=== PATIENT | female | born 2000 | race Two or more races ===

== ENCOUNTER 2019-06-28 20:09 | Emergency (ER) | payer MEDICAID ==
[~2019-06-28] VITALS: Ht 152.4 cm; Wt 53.0 kg
[2019-06-28 20:17] VITALS: BP 122/78
--- NOTE | 2019-06-28 20:24 | NUR ---
PT BIB PD FOR SI. REPORT STATED PT HAS BEEN DEPRESSED, MOTHER TOLD PT TO NOT FORGET TO FEED 4 MONTH OLD BABY, PT STS SHE DIDNT WANT TO FEED HER. THAT SHE DIDNT WANT THE BABY IN THE FIRST PLACE. "I JUST WANT TO ." PT HAS BEEN OFF MEDS X2 YEARS. PT REPORTING THAT FOR MONTHS SHE HAS BEEN TRYING TO GET HELP BUT DISCURRAGED BY FAMILY. PAST ATTEMPTS (HANGING, CUTTING). WHEN ASKED IF SHE HAD A PLAN THIS TIME PT STS, "I DO BUT I DONT WANT TO TELL ANYONE BECAUSE THEN SOMEONE WILL TRY TO STOP ME." PT WOULD NOT CONFIDE PLAN TO THIS RN AT THIS TIME. UNDRESSED COMPLETELY EXCEPT FOR UNDERWARE D/T PT BEING ON PERIOD. NON SKID SOCKS AND BLANKET PROVIDED FOR COMFORT. 2 BAGS OF BELONGINGS INCLUDING CLOTHING, BOOTS, PHONE, NECKLACE AND ID PLACED INTO LOCKER. PT CURRENTLY CALM AND COOPERATIVE WITH STAFF. WILL CONTINUE TO MONITOR
[2019-06-28 21:02] LABS: BASOPHILS # (AUTO) 0.06 x10^3/uL (0-0.3); BASOPHILS % (AUTO) 1 % (0-1); EOSINOPHILS # (AUTO) 0.79 x10^3/uL (0-0.8); EOSINOPHILS % (AUTO) 8 % (1-7); LYMPHOCYTES # (AUTO) 3.27 x10^3/uL (1-6.1); LYMPHOCYTES % (AUTO) 33 % (22-44); MD NO; MEAN CORPUSCULAR HEMOGLOBIN 28.8 pg (27.0-34.8); MEAN CORPUSCULAR HGB CONC 33.3 g/dL (32.4-35.8); MEAN CORPUSCULAR VOLUME 86.6 fL (80-100); MEAN PLATELET VOLUME 8.8 fL (7.4-10.4); MONOCYTES # (AUTO) 0.61 x10^3/uL (0-1.4); MONOCYTES % (AUTO) 6 % (2-9); NEUTROPHILS # (AUTO) 5.32 x10^3/uL (1.8-8.0); NEUTROPHILS % (AUTO) 53 % (42-75); PLATELET COUNT 426 x10^3/uL (130-400); RED BLOOD COUNT 4.44 x10^6/uL (3.82-5.3); RED CELL DISTRIBUTION WIDTH 16.6 % (9.6-15.2)
[2019-06-28 21:15] LABS: ALBUMIN 3.7 g/dL (3.4-5.0); ANION GAP 5 mmol/L (5-15); CALCIUM 9.2 mg/dL (8.5-10.1); CHLORIDE 108 mmol/L (98-107); CREATININE 0.71 mg/dL (0.55-1.02); SALICYLATE LEVEL < 1.7 mg/dL (2.8-20.0)
[2019-06-28 21:23] LABS: AMPHETAMINE SCREEN, URINE Negative (Negative); BARBITURATE SCREEN, URINE Negative (Negative); BENZODIAZEPINE SCREEN, URINE Negative (Negative); CANNABINOID SCREEN, URINE Negative (Negative); COCAINE SCREEN, URINE Negative (Negative); METHADONE SCREEN, URINE Negative (Negative); OPIATE SCREEN, URINE Negative (Negative)
--- NOTE | 2019-06-28 21:32 | NUR ---
PA TO BEDSIDE, STS NO NEED FOR TELEPSYCH PT WILL STAY ON LEGAL HOLD. PLAN TO FIND PLACEMENT WHEN PT MEDICALLY CLEARED. ALL RESULTS BACK AT THIS TIME. PT RESTING IN BED WATCHING TV. CALM AND COOPERATIVE WITH STAFF AT THIS TIME. WILL CONTINUE TO MONITOR PT.
--- NOTE | 2019-06-28 22:27 | NUR ---
PT RESTING IN BED, NADN, NO COMPLAINTS AT THIS TIME. PT GIVEN JUICE AND CRACKERS PER REQUEST. SITTER IN DE [place] FOR CONTINUOUS MONITORING.
--- NOTE | 2019-06-28 22:40 | NUR ---
REPORT RECEIVED FROM KATHRIN PINO RN. ASSUMED CARE OF PT. PT MOVED TO ROOM 3. ROOM SECURE. SITTER OUTSIDE DOOR
--- NOTE | 2019-06-28 23:21 | NUR ---
PT RESTING ON GURNEY, CONVERSING WITH SITTER, LAUGHING AND MAKING JOKES. WHEN ASKED HOW SHE IS FEELING SHE STATES "I'M SMILING ON THE OUTSIDE BUT I FEEL SAD AND LONELY ON THE INSIDE". PT REPORTS SHE DOES NOT HAVE ANY THOUGHTS OF HARMING HERSELF AT THIS TIME. SITTER REMAINS OUTSIDE DOOR MONITORING PT. ROOM SECURE. WILL CONTINUE TO MONITOR.
--- NOTE | 2019-06-28 23:52 | NUR ---
[employer]BI paged as patient has [employer] HPN insurance. All information provided.
--- NOTE | 2019-06-29 00:44 | NUR ---
PT PROVIDED WITH BREAST PUMP
--- NOTE | 2019-06-29 01:03 | NUR ---
ATTEMPTED TO CALL PT MOTHER TO SEE IF SHE WILL BE PICKING UP THE PATIENT'S BREASTMILK FOR HER BABY. NO ANSWER. THE PT THINKS SHE IS LIKELY AWAKE AT THIS TIME FEEDING THE BABY. THE MILK IS LABELED AND WILL BE STORED ON ICE
--- NOTE | 2019-06-29 02:20 | NUR ---
PT PROVIDED WITH A MEAL UPON REQUEST. FLUIDS ALSO PROVIDED. PT REMAINS CALM AND COOPERATIVE AT THIS TIME. ROOM REMAINS SECURE. SITTER OUTSIDE DOOR MONITORING PT
[2019-06-29] MEDS ORDERED: DIPHENHYDRAMINE 50 MG CAPSULE ONE (03:11)
--- NOTE | 2019-06-29 03:15 | NUR ---
PT MEDICATED PER EMAR, 5 RIGHTS ADDRESSED.
[2019-06-29] MEDS ORDERED: DIPHENHYDRAMINE 50 MG CAPSULE PO PRN (03:30)
--- NOTE | 2019-06-29 04:23 | NUR ---
PT SLEEPING, RESPIRATIONS EVEN AND UNLABORED. SITTER OUTSIDE DOOR, ROOM REMAINS SECURE. AWAITING PSYCH EVALUATION AT THIS TIME
--- NOTE | 2019-06-29 05:30 | NUR ---
PT CONTINUES TO SLEEP. RESPIRATIONS EVEN AND UNLABORED. ROOM REMAINS SECURE. SITTER OUTSIDE DOOR
--- NOTE | 2019-06-29 09:45 | NUR ---
Patient has been awake the last hour. She is quiet, cooperative with VS and assessment. Patient denies SI/HI at this time, though she does admit to SA by hanging in the past and states she spent tmie in inpatient treatment subsequently. Her affect is blunted, good eye contact, guarded. Reports depression 6/10, but no anxiety. Denies SI/HI at this tme. Denies AH/VH. Denies pain. She is four months post- and is pumping milk for baby. Reports she slept fair, endorses that she is tired, eating and drinking fluids well,Continue to monitor for safety, all unsafe items removed from room, garage door down.
[2019-06-29] MEDS ORDERED: PREN1TAB60 PO (10:03)
[2019-06-29] MEDS ORDERED: BUPR75TA6 PO (12:20)
[2019-06-29] MEDS ORDERED: RISP0.5T3 PO (12:20)
[2019-06-29] MEDS ORDERED: ARIP10TA33 PO (12:20)
[2019-06-29] MEDS ORDERED: OXCA600T10 PO (12:20)
== END 2019-06-29 23:56 | disposition other institution (70) ==
LOC: ED 22:32
DX: F33.9 Major depressive disorder, recurrent, unspecified (principal); R45.851 Suicidal ideations
CPT/HCPCS: 36415; 80048; 80307; 82040; 84703; 85025; 99284

== ENCOUNTER 2019-06-29 10:28 | Inpatient (IN) | payer MEDICAID ==
[~2019-06-29] VITALS: Ht 152.4 cm; Wt 43.3 kg
[~2019-06-29 10:28] MED LIST: PREN1TAB60 PO
[2019-06-29 11:05] VITALS: BP 97/54
[2019-06-29] MEDS ORDERED: FLU VACC QS2019-20 36MOS UP/PF 0.5 ML IM-VACC ONE (11:30)
[2019-06-29] MEDS ORDERED: DOCUSATE 100 MG CAPSULE PO PRN (11:30)
[2019-06-29] MEDS ORDERED: POLYETHYLENE GLYCOL 17 GM PACKET PO PRN (11:30)
[2019-06-29] MEDS ORDERED: PLEASE ENTER HEIGHT AND WEIGHT MC SCH (11:30)
[2019-06-29] MEDS ORDERED: BISACODYL 10 MG SUPP PR PRN (11:30)
[2019-06-29 12:14] LABS: CULTURE INDICATED? YES; MICROSCOPIC INDICATED
[2019-06-29] MEDS ORDERED: OXCA600T10 PO (12:20)
[2019-06-29] MEDS ORDERED: BUPR75TA6 PO (12:20)
[2019-06-29] MEDS ORDERED: ARIP10TA33 PO (12:20)
[2019-06-29] MEDS ORDERED: RISP0.5T3 PO (12:20)
[2019-06-29 19:15] VITALS: BP 98/63
[2019-06-29] MEDS ORDERED: TRAZODONE 50MG TABLET ONE (23:14)
[2019-06-29] MEDS: TRAZODONE 50MG TABLET PO PRN (23:17)
[2019-06-30 07:37] VITALS: BP 99/62
[2019-06-30] MEDS: FLUOXETINE 10 MG CAP PO SCH (09:04)
[2019-06-30] MEDS: MULTIVITAMIN 1 TABLET PO SCH (09:04)
[2019-06-30] MEDS: ACETAMINOPHEN 325 MG TABLET PO PRN (11:00)
[2019-06-30 19:28] VITALS: BP 97/61
[2019-07-01 07:29] VITALS: BP 103/66
[2019-07-01] MEDS: FLUOXETINE 10 MG CAP PO SCH (08:21)
[2019-07-01] MEDS: MULTIVITAMIN 1 TABLET PO SCH (08:21)
[2019-07-01 11:09] LABS: CHOL/HDL RATIO 3.4; LDL/HDL RATIO 1.8 (0.5-3.0)
[2019-07-01 19:39] VITALS: BP 107/70
[2019-07-02 07:18] VITALS: BP 106/65
[2019-07-02] MEDS: MULTIVITAMIN 1 TABLET PO SCH (08:53)
[2019-07-02] MEDS: FLUOXETINE 10 MG CAP PO SCH (08:53)
[2019-07-02] MEDS: ACETAMINOPHEN 325 MG TABLET PO PRN (09:07)
[2019-07-02] MEDS: ONDANSETRON ODT 4 MG PO PRN (09:07)
[2019-07-02 19:15] VITALS: BP 100/65
[2019-07-03 07:16] VITALS: BP 101/58
[2019-07-03] MEDS: ONDANSETRON ODT 4 MG PO PRN (08:59)
[2019-07-03] MEDS: FLUOXETINE HCL 20 MG CAPSULE PO SCH (08:59)
[2019-07-03] MEDS: MULTIVITAMIN 1 TABLET PO SCH (09:00)
[2019-07-03 20:07] VITALS: BP 105/63
[2019-07-03] MEDS: TRAZODONE 50MG TABLET PO PRN (20:59)
[2019-07-04 07:42] VITALS: BP 101/63
[2019-07-04] MEDS: FLUOXETINE HCL 20 MG CAPSULE PO SCH (09:12)
[2019-07-04] MEDS: MULTIVITAMIN 1 TABLET PO SCH (09:12)
[2019-07-04] MEDS ORDERED: TRAZ50TA66 PO (13:08)
[2019-07-04] MEDS ORDERED: MULT1TAB60 PO (13:08)
[2019-07-04] MEDS ORDERED: FLUO20CA8 PO (13:08)
== END 2019-07-04 15:30 | disposition home or self-care (01) | DRG 751 ==
LOC: 3E 10:52
PROVIDERS: ADMIT Psychiatry & Neurology Psychosomatic Medicine; ATTEND Internal Medicine
DX: F33.2 Major depressive disorder, recurrent severe without psychotic features (principal); R45.851 Suicidal ideations; J45.909 Unspecified asthma, uncomplicated; Z79.899 Other long term (current) drug therapy; Z91.011 Allergy to milk products; Z91.018 Allergy to other foods; Z81.8 Family history of other mental and behavioral disorders; Z82.49 Family history of ischemic heart disease and other diseases of the circulatory system
CPT/HCPCS: 36415; 80061; 81001; 82607; 84439; 84443; 84702; 87086; 90686; 93005; Q0162

== ENCOUNTER 2019-09-29 17:51 | Emergency (ER) | payer MEDICAID ==
[~2019-09-29] VITALS: Ht 152.4 cm; Wt 45.2 kg
[~2019-09-29 17:51] MED LIST changes: +ARIP10TA33 PO; +BUPR75TA6 PO; +FLUO20CA23 PO; +MULT1TAB60 PO; +OXCA600T10 PO; +RISP0.5T3 PO; +TRAZ50TA66 PO
[2019-09-29 19:47] VITALS: BP 122/72
== END 2019-09-29 19:52 ==
LOC: ED 18:58
DX: S46.911A Strain of unspecified muscle, fascia and tendon at shoulder and upper arm level, right arm, initial encounter (principal); J45.20 Mild intermittent asthma, uncomplicated; F17.200 Nicotine dependence, unspecified, uncomplicated; X58.XXXA Exposure to other specified factors, initial encounter; Y93.89 Activity, other specified; Y92.89 Other specified places as the place of occurrence of the external cause; Y99.8 Other external cause status
CPT/HCPCS: 71045; 99283

== ENCOUNTER 2019-09-30 00:57 | Emergency (ER) | payer MEDICAID ==
[~2019-09-30] VITALS: Ht 152.4 cm; Wt 53.0 kg
[2019-09-30 01:01] VITALS: BP 120/75
[2019-09-30] MEDS ORDERED: DIPHENHYDRAMINE 25 MG CAPSULE ONE (01:14)
[2019-09-30] MEDS ORDERED: DIPHENHYDRAMINE 25 MG CAPSULE PO ONE (01:30)
== END 2019-09-30 01:57 ==
LOC: ED 01:25
DX: R07.0 Pain in throat (principal); T79.0XXA Air embolism (traumatic), initial encounter; T39.315A Adverse effect of propionic acid derivatives, initial encounter; J45.909 Unspecified asthma, uncomplicated; X58.XXXA Exposure to other specified factors, initial encounter; Y93.89 Activity, other specified; Y92.9 Unspecified place or not applicable; Y99.9 Unspecified external cause status
CPT/HCPCS: 99283; J7512; Q0163

== ENCOUNTER 2019-10-29 21:19 | Emergency (ER) | payer MEDICAID ==
[~2019-10-29] VITALS: Ht 152.4 cm; Wt 46.0 kg
[2019-10-29] MEDS ORDERED: METR500T PO (21:34)
--- NOTE | 2019-10-29 21:36 | NUR ---
PT WITHIN VIEW OF NURSES STATION FOR SAFETY, AWAIT ROOM READINESS AND PT TO GO TO SECURED ROOM, SITTER HERE TO ASSIST WITH SAFETY OF THIS PT.
--- NOTE | 2019-10-29 21:49 | NUR ---
ASSESSMENT MADE. PA AT BEDSIDE.
--- NOTE | 2019-10-29 21:55 | NUR ---
PATIENT'S BELONGING 1 PLASTIC BAG AND PLACED IN SECURED LOCKER. URINE SENT TO LAB.
[2019-10-29 22:16] LABS: AMPHETAMINE SCREEN, URINE Negative (Negative); BARBITURATE SCREEN, URINE Negative (Negative); BENZODIAZEPINE SCREEN, URINE Negative (Negative); CANNABINOID SCREEN, URINE Negative (Negative); COCAINE SCREEN, URINE Negative (Negative); METHADONE SCREEN, URINE Negative (Negative); OPIATE SCREEN, URINE Negative (Negative)
--- NOTE | 2019-10-29 22:17 | NUR ---
CONVEYOR WEIGHER OPERATOR AT BEDSIDE FOR BLOOD DRAW.
[2019-10-29 22:38] LABS: BASOPHILS # (AUTO) 0.06 x10^3/uL (0-0.3); BASOPHILS % (AUTO) 1 % (0-1); EOSINOPHILS # (AUTO) 1.08 x10^3/uL (0-0.8); EOSINOPHILS % (AUTO) 12 % (1-7); LYMPHOCYTES # (AUTO) 3.84 x10^3/uL (1-6.1); LYMPHOCYTES % (AUTO) 42 % (22-44); MD NO; MEAN CORPUSCULAR HEMOGLOBIN 25.1 pg (27.0-34.8); MEAN CORPUSCULAR VOLUME 78.4 fL (80-100); MEAN PLATELET VOLUME 8.6 fL (7.4-10.4); MONOCYTES # (AUTO) 0.77 x10^3/uL (0-1.4); MONOCYTES % (AUTO) 8 % (2-9); NEUTROPHILS # (AUTO) 3.44 x10^3/uL (1.8-8.0); NEUTROPHILS % (AUTO) 37 % (42-75); PLATELET COUNT 460 x10^3/uL (130-400); RED BLOOD COUNT 4.43 x10^6/uL (3.82-5.3); RED CELL DISTRIBUTION WIDTH 15.9 % (9.6-15.2)
[2019-10-29 22:42] LABS: ALBUMIN 3.4 g/dL (3.4-5.0); ANION GAP 6 mmol/L (5-15); CALCIUM 8.6 mg/dL (8.5-10.1); CHLORIDE 108 mmol/L (98-107); CREATININE 0.77 mg/dL (0.55-1.02)
[2019-10-29 22:43] LABS: SALICYLATE LEVEL < 1.7 mg/dL (2.8-20.0)
--- NOTE | 2019-10-29 22:52 | NUR ---
Tele psych consult initiated.
[2019-10-29 23:02] LABS: CULTURE INDICATED? YES; MICROSCOPIC INDICATED
--- NOTE | 2019-10-29 23:40 | NUR ---
report was given to Psychiatry MD. tele robot at bedside.
--- NOTE | 2019-10-29 23:46 | NUR ---
Psychiatrist evaluating patient at this time.
--- NOTE | 2019-10-30 00:48 | NUR ---
re-evaluation done. patient discharged with instruction. verbalized understanding. cab voucher provided.
[2019-10-30 00:49] VITALS: BP 108/76
== END 2019-10-30 00:51 | disposition home or self-care (01) ==
LOC: ED 21:23
DX: R45.851 Suicidal ideations (principal); F41.9 Anxiety disorder, unspecified; J45.909 Unspecified asthma, uncomplicated; R52 Pain, unspecified
CPT/HCPCS: 36415; 80048; 80307; 81001; 82040; 84703; 85025; 87086; 99283

== ENCOUNTER 2019-11-03 19:20 | Emergency (ER) | payer MEDICAID ==
[~2019-11-03] VITALS: Ht 165.1 cm; Wt 58.0 kg
[~2019-11-03 19:20] MED LIST changes: +METR500T PO
[2019-11-03 19:30] VITALS: BP 126/70
--- NOTE | 2019-11-03 20:10 | NUR ---
PER PT [facility] HAS ALREADY BEEN TO SEE HER AND SHE HAS MADE A REPORT OF THE OCCURANCE.
[2019-11-03] MEDS ORDERED: FLUORESCEIN OPHTHALMIC 1 MG STRIP ONE (21:19)
[2019-11-03] MEDS ORDERED: PROPARACAINE OPHTH 0.5%, 15ML ONE (21:19)
--- NOTE | 2019-11-03 21:24 | NUR ---
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
[2019-11-03] MEDS ORDERED: PROPARACAINE OPHTH 0.5%, 15ML RIGHTEYE ONE (21:30)
[2019-11-03] MEDS ORDERED: FLUORESCEIN OPHTHALMIC 1 MG STRIP RIGHTEYE ONE (21:30)
--- NOTE | 2019-11-03 23:25 | NUR ---
PA AT BEDSIDE FOR EYE EXAM AT THIS TIME
--- NOTE | 2019-11-03 23:45 | NUR ---
PT EYE IRRIGATED, PT TOLERATED WELL STS EYE FEELS BETTER NOW
== END 2019-11-04 00:13 | disposition home or self-care (01) ==
LOC: ED 23:01
DX: S05.01XA Injury of conjunctiva and corneal abrasion without foreign body, right eye, initial encounter (principal); S20.212A Contusion of left front wall of thorax, initial encounter; Y04.0XXA Assault by unarmed brawl or fight, initial encounter; Y93.89 Activity, other specified; Y92.009 Unspecified place in unspecified non-institutional (private) residence as the place of occurrence of the external cause; Y99.8 Other external cause status
CPT/HCPCS: 70486; 99284

== ENCOUNTER 2019-11-06 10:51 | Emergency (ER) | payer MEDICAID ==
[~2019-11-06] VITALS: Ht 152.4 cm; Wt 46.0 kg
[2019-11-06 10:55] VITALS: BP 107/59
[2019-11-06] MEDS ORDERED: ONDANSETRON ODT 4 MG ONE (11:22)
[2019-11-06] MEDS ORDERED: ONDANSETRON ODT 4 MG PO ONE (11:30)
[2019-11-06 11:46] LABS: HCG UR SG 1.024 (1.003-1.030); MICROSCOPIC NOT IND
--- NOTE | 2019-11-06 11:51 | NUR ---
recheck. preg neg. as
--- NOTE | 2019-11-06 12:31 | NUR ---
plan labs. as
== END 2019-11-06 12:42 | disposition home or self-care (01) ==
LOC: ED 12:26
DX: R11.2 Nausea with vomiting, unspecified (principal)
CPT/HCPCS: 81003; 81025; 99283; Q0162

== ENCOUNTER 2020-12-18 02:15 | Inpatient (IN) | payer MEDICAID ==
[~2020-12-18] VITALS: Ht 152.4 cm; Wt 47.0 kg
[~2020-12-18 02:15] MED LIST changes: +MULT-449 PO; -MULT1TAB60 PO; -RISP0.5T3 PO; +RISP0.5T62 PO
[2020-12-18] MEDS ORDERED: SODIUM CHLORIDE 0.9% 1,000ML IVBOLUS ONE ×2 (02:30→04:30)
[2020-12-18 02:38] LABS: BASOPHILS % (AUTO) 0 % (0-1); EOSINOPHILS % (AUTO) 0 % (1-7); LYMPHOCYTES % (AUTO) 14 % (22-44); MEAN CORPUSCULAR HGB CONC 33.2 g/dL (32.4-35.8); MEAN PLATELET VOLUME 8.7 fL (7.4-10.4); MONOCYTES % (AUTO) 3 % (2-9); NEUTROPHILS % (AUTO) 83 % (42-75); PLATELET COUNT 372 x10^3/uL (130-400); RED BLOOD COUNT 3.48 x10^6/uL (3.82-5.3); RED CELL DISTRIBUTION WIDTH 14.2 % (9.6-15.2)
[2020-12-18 02:46] LABS: ALANINE AMINOTRANSFERASE 14 U/L (12-78); ANION GAP 10 mmol/L (5-15); CALCIUM 7.7 mg/dL (8.5-10.1); CHLORIDE 106 mmol/L (98-107); CREATININE 0.67 mg/dL (0.55-1.02)
--- NOTE | 2020-12-18 02:50 | NUR ---
DR LORENZ AT BEDSIDE FOR VAGINAL EXAM. SMALL AMOUNT OF BLOOD WITH FEW CLOTS AT TIME OF EXAM. AFTER MD LEFT, PT STATES. "I JUST GUSHED" PT ASSISTED WITH [facility]. PROVIDED WITH MESH PANTIES AND NEW PAD. [place]ISON PAWS WARMER IN PLACE. SR PER MONITOR. PT PALE.
[2020-12-18 03:04] LABS: ALKALINE PHOSPHATASE 42 U/L (45-117); BILIRUBIN,TOTAL 0.4 mg/dL (0.2-1.0); TOTAL PROTEIN 6.3 g/dL (6.4-8.2)
--- NOTE | 2020-12-18 03:04 | NUR ---
US TECH AT BEDSIDE. PT FRIEND ANTONI AT BEDSIDE.
--- NOTE | 2020-12-18 03:14 | NUR ---
"I DONT FEEL WELL, I'M HOT, I'M GOING TO THROW UP" RECYCLE BP 63/36. DR LORENZ NOTIFED. 2ND LITER NS STARTED.
--- NOTE | 2020-12-18 03:19 | NUR ---
2 UNITS OF BLOOD REQUESTED FROM BLOOD BANK AT THIS TIME.
--- NOTE | 2020-12-18 03:20 | NUR ---
PT DENIES ANY PRESCRIPTION MEDICATIONS. EKG IN PROCESS.
[2020-12-18 03:32] LABS: TROPONIN I < 0.015 ng/mL (0.000-0.045)
[2020-12-18 03:33] VITALS: BP 104/62
[2020-12-18 03:47] VITALS: BP 90/36
--- NOTE | 2020-12-18 03:51 | NUR ---
PER DR LORENZ, PT TO RECEIVE BOTH UNITS OF BLOOD AT THE SAME TIME. 2ND UNIT STARTED AFTER LAB DRAW. PT CONT SR PER MONITOR. BP VARIABLE. PT STATES LAST TIME ATE WAS APPROX 0200. DR MAXWELL AT BEDSIDE TO EVAL PT. PT CONT PALE AND C/O INTERMITTENT NAUSEA.
[2020-12-18] MEDS ORDERED: MISOPROSTOL 200 MCG TABLET ONE (03:52)
[2020-12-18] MEDS ORDERED: METHYLERGONOVINE 0.2 MG/ML IM ONE (03:52)
[2020-12-18] MEDS ORDERED: OXYTOCIN 10 UNITS/ML, 1ML ONE (03:52)
--- NOTE | 2020-12-18 03:53 | NUR ---
PT SIGNED CONSENT FOR BLOOD TRANSFUSION PRIOR TO STARTING BLOOD.
--- NOTE | 2020-12-18 03:54 | NUR ---
PT RECEIVED 500CC OF 2ND LITER OF NS.
--- NOTE | 2020-12-18 03:59 | NUR ---
RECEIVED CALL FROM INVESTOR RELATIONS SPECIALIST, POC DISCUSSED.
[2020-12-18] MEDS ORDERED: CEFTRIAXONE 1,000 MG in DEXTROSE 5% 50 ML IVPB ONE ×2 (04:00→11:00)
[2020-12-18 04:02] VITALS: BP 102/45
[2020-12-18 04:03] VITALS: BP 102/45
[2020-12-18] MEDS ORDERED: FENTANYL PF 250 MCG/5ML ONE (04:06)
[2020-12-18] MEDS ORDERED: MIDAZOLAM 1 MG/ML, 2ML ONE (04:06)
--- NOTE | 2020-12-18 04:11 | NUR ---
DISCUSSED WITH DR LORENZ, PT HAS NOT RECEIVED ANY ABX. PT HAS TWO UNITS OF BLOOD INFUSING. PT TO OR WITH BLOOD INFUSING. NO S/S OF REACTION NOTED. COVID SWAB OBTAINED AND WALKED TO LAB.
--- NOTE | 2020-12-18 04:15 | NUR ---
PT TOOK OUT BELLY BUTTON RING. NO WALLET OR PURSE. CLOTHING AND BELLY BUTTON RING GIVEN TO ANTONI PTS BOYFRIEND.
[2020-12-18] MEDS ORDERED: MISOPROSTOL 200 MCG TABLET PO ONE (04:56)
[2020-12-18] MEDS ORDERED: ACETAMINOPHEN 325 MG TABLET PO PRN (05:00)
[2020-12-18] MEDS ORDERED: HYDROmorphone 1 MG/ML, 1ML INJ IVPush PRN (05:00)
[2020-12-18] MEDS ORDERED: ONDANSETRON 2MG/ML, 2ML IVPush PRN ×2 (05:00→05:30)
[2020-12-18] MEDS ORDERED: MEPERIDINE/PF 25MG/0.5ML IVPush PRN (05:00)
[2020-12-18] MEDS ORDERED: FENTANYL PF 100 MCG/2ML IV PRN (05:00)
[2020-12-18] MEDS ORDERED: OXYcodone 5 MG/5 ML ORAL.SOL UDC PO PRN (05:00)
[2020-12-18] MEDS ORDERED: PROMETHAZINE 25 MG/ML, 1ML IVPush PRN (05:00)
[2020-12-18] MEDS ORDERED: DIAZEPAM 5 MG/ML, 2ML IVPush PRN (05:00)
[2020-12-18] MEDS ORDERED: TRANEXAMIC ACID 100 MG/ML, 10ML ONE (05:04)
[2020-12-18] MEDS ORDERED: MEPERIDINE/PF 25MG/ML,1ML ONE (05:29)
[2020-12-18] MEDS ORDERED: OXYcodone/APAP 5/325MG TABLET PO PRN (05:30)
[2020-12-18] MEDS ORDERED: LACTATED RINGERS 500 ML IVBOLUS ONE (05:30)
[2020-12-18] MEDS ORDERED: LACTATED RINGERS 1,000 ML IV SCH (05:30)
[2020-12-18 05:40] LABS: ALBUMIN 2.4 g/dL (3.4-5.0); CALCIUM 6.8 mg/dL (8.5-10.1); CHLORIDE 113 mmol/L (98-107)
[2020-12-18 05:42] LABS: INTERNATIONAL NORMALIZED RATIO 1.17 (0.93-1.1); PROTHROMBIN TIME 12.5 Seconds (9.6-11.5)
[2020-12-18 05:43] LABS: ALANINE AMINOTRANSFERASE 11 U/L (12-78); ALKALINE PHOSPHATASE 37 U/L (45-117); BILIRUBIN,TOTAL 0.5 mg/dL (0.2-1.0); TOTAL PROTEIN 4.9 g/dL (6.4-8.2)
[2020-12-18 05:49] LABS: ANION GAP 4 mmol/L (5-15)
[2020-12-18 06:47] VITALS: BP 97/54
[2020-12-18] MEDS ORDERED: INSULIN REGULAR 100 UNITS/ML, 3ML VIAL IVPush ONE (08:30)
[2020-12-18] MEDS ORDERED: ALBUTEROL SULFATE 2.5 MG/3 ML HHN PRN (08:30)
[2020-12-18] MEDS ORDERED: DEXTROSE 50%, 50ML SYRINGE IVPush ONE (08:30)
[2020-12-18] MEDS ORDERED: INSULIN LISPRO 100 UNIT/ML, 3ML VIAL SQ-INSULIN ONE (09:00)
[2020-12-18] MEDS ORDERED: CALCIUM GLUCONATE 4.6 MEQ in SODIUM CHLORIDE 0.9% 100 ML IV ONE (09:00)
[2020-12-18] MEDS: SODIUM BICARBONATE 8.4% 150 MEQ in DEXTROSE 5% 1,000 ML IV SCH ×2 (09:30→15:31)
[2020-12-18 09:58] LABS: MICROSCOPIC INDICATED
[2020-12-18 12:35] VITALS: BP 108/65
== END 2020-12-18 16:20 | disposition left against medical advice (07) | DRG 560 ==
LOC: ED 03:54 → EDIP 05:41 → 3N 07:17 → 4WST 07:50
PROVIDERS: ADMIT Internal Medicine; ATTEND Internal Medicine
PROC: 10D07Z8 Extraction of Products of Conception, Other, Via Natural or Artificial Opening (ICD-10-PCS; principal; 2020-12-18 04:30)
DX: O03.33 Metabolic disorder following incomplete spontaneous abortion (principal); I95.89 Other hypotension; D62 Acute posthemorrhagic anemia; E86.1 Hypovolemia; E87.5 Hyperkalemia; I10 Essential (primary) hypertension; D72.829 Elevated white blood cell count, unspecified; J45.909 Unspecified asthma, uncomplicated; Z81.8 Family history of other mental and behavioral disorders; Z53.29 Procedure and treatment not carried out because of patient's decision for other reasons
CPT/HCPCS: 36415; 71045; 76830; 80053; 81001; 83605; 84132; 84145; 84484; 84702; 85014; 85018; 85025; 85610; 85730; 86850; 86900; 86923; 87040; 87086; 87635; 88305; 93005; G0378; J0610; J0696; J1815; J2175; J2250; J3010; J7070; J1817; J2210; J2590; J7030; P9016

== ENCOUNTER 2020-12-31 05:19 | Inpatient (IN) | payer MEDICAID ==
[~2020-12-31] VITALS: Ht 152.4 cm; Wt 53.1 kg
[2020-12-31] MEDS ORDERED: DOCUSATE 100 MG CAPSULE PO PRN (06:00)
[2020-12-31] MEDS ORDERED: POLYETHYLENE GLYCOL 17 GM PACKET PO PRN (06:00)
[2020-12-31] MEDS ORDERED: BISACODYL 10 MG SUPP PR PRN (06:00)
[2020-12-31] MEDS ORDERED: ONDANSETRON ODT 4 MG PO PRN (06:00)
[2020-12-31] MEDS ORDERED: ACETAMINOPHEN 325 MG TABLET PO PRN (06:00)
[2020-12-31 08:30] VITALS: BP 109/76
[2020-12-31] MEDS ORDERED: PLEASE ENTER HEIGHT AND WEIGHT MC SCH (09:00)
[2020-12-31 09:28] LABS: BASOPHILS % (AUTO) 1 % (0-1); EOSINOPHILS % (AUTO) 7 % (1-7); LYMPHOCYTES % (AUTO) 52 % (22-44); MEAN CORPUSCULAR HEMOGLOBIN 27.7 pg (27.0-34.8); MEAN CORPUSCULAR HGB CONC 33.5 g/dL (32.4-35.8); MEAN PLATELET VOLUME 7.1 fL (7.4-10.4); MONOCYTES % (AUTO) 7 % (2-9); NEUTROPHILS % (AUTO) 33 % (42-75); PLATELET COUNT 759 x10^3/uL (130-400); RED BLOOD COUNT 3.82 x10^6/uL (3.82-5.3); RED CELL DISTRIBUTION WIDTH 15.4 % (9.6-15.2)
[2020-12-31 09:32] LABS: ANION GAP 3 mmol/L (5-15); CHLORIDE 107 mmol/L (98-107)
[2020-12-31 09:59] LABS: CREATININE 0.66 mg/dL (0.55-1.02)
[2020-12-31 10:36] VITALS: BP 109/76
[2020-12-31] MEDS ORDERED: ALBUTEROL HFA 90 MCG/SPRAY INH PRN (13:30)
[2020-12-31] MEDS ORDERED: HYDR-826 PO (14:09)
[2020-12-31] MEDS ORDERED: ALBU18HF PO (14:12)
[2020-12-31] MEDS: ESCITALOPRAM 10MG TABLET PO SCH (15:53)
[2020-12-31 17:01] LABS: MICROSCOPIC AUTO
[2020-12-31 19:54] VITALS: BP 99/68
[2020-12-31] MEDS: QUETIAPINE 25MG TABLET PO SCH (20:20)
[2021-01-01 02:32] LABS: CHOL/HDL RATIO 4.2; LDL/HDL RATIO 2.7 (0.5-3.0)
[2021-01-01 07:19] VITALS: BP 93/53
[2021-01-01] MEDS: ESCITALOPRAM 10MG TABLET PO SCH (08:23)
[2021-01-01 19:50] VITALS: BP 107/52
[2021-01-01] MEDS: QUETIAPINE 25MG TABLET PO SCH (22:13)
[2021-01-02 07:20] VITALS: BP 98/63
[2021-01-02] MEDS: ESCITALOPRAM 10MG TABLET PO SCH (09:01)
[2021-01-02 19:20] VITALS: BP 114/72
[2021-01-02] MEDS: QUETIAPINE 25MG TABLET PO SCH (22:37)
[2021-01-03 07:29] VITALS: BP 99/57
[2021-01-03] MEDS: ESCITALOPRAM 10MG TABLET PO SCH (08:36)
[2021-01-03] MEDS ORDERED: ESCI10TA97 PO (13:28)
[2021-01-03] MEDS ORDERED: QUET25TA7 PO (13:28)
== END 2021-01-03 14:15 | disposition home or self-care (01) | DRG 885 ==
LOC: 3E 08:28
PROVIDERS: ADMIT Psychiatry & Neurology Psychosomatic Medicine; ATTEND Psychiatry & Neurology Psychosomatic Medicine
DX: F33.2 Major depressive disorder, recurrent severe without psychotic features (principal); G47.00 Insomnia, unspecified; J45.909 Unspecified asthma, uncomplicated; F41.9 Anxiety disorder, unspecified
CPT/HCPCS: 36415; 71045; 80048; 80061; 81001; 82607; 84439; 84443; 84702; 85025; 87086; 93005